=== PATIENT | male | born 1975 | race Caucasian/White ===

== ENCOUNTER 2018-09-22 07:10 | Day surgery (SDC) ==
[2018-09-22] MEDS: TETRACAINE 0.5% UNIT-DOSE OP PRN ×2 (07:35→08:32)
[2018-09-22] MEDS: BETADINE OPTH PREP OP PRN ×2 (07:35→08:32)
[2018-09-22] MEDS: CYCLOGYL 2% OPTH OP PRN ×3 (07:36→07:46)
[2018-09-22] MEDS ORDERED: LIDOCAINE 1%/PHENYLEPHRINE 1.5% BSS (SURGERY) INTRAOCULA ONE (07:43)
[2018-09-22] MEDS ORDERED: BSS WITH EPINEPHRINE OP ONE (07:43)
[2018-09-22] MEDS ORDERED: BRIMONIDINE TARTRATE 0.2% OPTH SOL OP PRN (07:43)
[2018-09-22] MEDS ORDERED: ZOFRAN 4 MG/2 ML IVP ONE (07:43)
[2018-09-22] MEDS ORDERED: LIDOCAINE 1% 20 ML MDV ID STA (07:43)
[2018-09-22] MEDS ORDERED: DEX-MOXI-KETOR OPTH INJ 1/0.5/0.4 MG/ML IO ONE (07:43)
[2018-09-22 07:50] VITALS: TEMP 98.1
[2018-09-22] MEDS ORDERED: SUBLIMAZE ONE (08:30)
[2018-09-22] MEDS ORDERED: ZOFRAN 4 MG/2 ML ONE (08:30)
[2018-09-22] MEDS ORDERED: VERSED ONE (08:30)
[2018-09-24 15:13] VITALS: BP 124/67
== END 2018-09-22 09:30 | disposition home or self-care (01) ==
LOC: SURG 07:10
PROVIDERS: ATTEND Ophthalmology
DX: H52.01 Hypermetropia, right eye (principal)

== ENCOUNTER 2018-10-06 07:21 | Day surgery (SDC) ==
[2018-10-06] MEDS ORDERED: LIDOCAINE 1% 20 ML MDV ID STA (07:48)
[2018-10-06] MEDS ORDERED: ZOFRAN 4 MG/2 ML IVP ONE (07:48)
[2018-10-06] MEDS ORDERED: BRIMONIDINE TARTRATE 0.2% OPTH SOL OP PRN (07:48)
[2018-10-06] MEDS: CYCLOGYL 2% OPTH OP PRN ×3 (07:55→08:05)
[2018-10-06] MEDS: TETRACAINE 0.5% UNIT-DOSE OP PRN ×2 (07:55→08:48)
[2018-10-06] MEDS: BETADINE OPTH PREP OP PRN ×2 (07:55→08:48)
[2018-10-06] MEDS: DEX-MOXI-KETOR OPTH INJ 1/0.5/0.4 MG/ML IO ONE ×2 (08:57→09:02)
[2018-10-06] MEDS: BSS WITH EPINEPHRINE OP ONE ×2 (08:57→09:02)
[2018-10-06] MEDS: LIDOCAINE 1%/PHENYLEPHRINE 1.5% BSS (SURGERY) INTRAOCULA ONE ×2 (08:57→09:02)
[2018-10-06] MEDS ORDERED: SUBLIMAZE ONE (09:00)
[2018-10-06] MEDS ORDERED: NARCAN ONE (09:00)
[2018-10-06] MEDS ORDERED: VERSED ONE (09:00)
[2018-10-06] MEDS ORDERED: TORADOL ONE (09:00)
[2018-10-06] MEDS ORDERED: DECADRON 4 MG/ML SDV ONE (09:00)
[2018-10-06] MEDS ORDERED: ZOFRAN 4 MG/2 ML ONE (09:00)
[2018-10-06] MEDS ORDERED: MIOSTAT INTRAOCULA ONE (09:14)
[2018-10-06 13:48] VITALS: TEMP 97.9
[2018-10-06 14:22] VITALS: BP 143/66
== END 2018-10-06 10:05 | disposition home or self-care (01) ==
LOC: SURG 07:21
PROVIDERS: ATTEND Ophthalmology
DX: H52.02 Hypermetropia, left eye (principal)